=== PATIENT | female | born 1950 | race Caucasian/White ===

== ENCOUNTER → 2016-05-15 | Outpatient (CLI) | payer OTHER ==
[~2016-05-15] MED LIST: ALBUAER2 INH; ATEN100T8 PO; CETI10TA84 PO; CHOL100010 PO; IBUP-103 PO; MOME50SP5; MULT-506 PO; OXYC-57 PO; PRVC10 PO
== END | disposition home or self-care (01) ==
LOC: C.PATHSPEC 15:45
PROVIDERS: ATTEND Dentist Oral and Maxillofacial Pathology
DX: M27.40 Unspecified cyst of jaw (principal)

== ENCOUNTER 2024-02-04 07:29 | Observation (INO) ==
--- NOTE | 2023-12-23 09:15 | PAT Medication Instructions ---
Medication Instructions Date of Service December 23, 2023 Home Medications atorvastatin 20 mg tablet 20 mg PO QAM cholecalciferol (vitamin D3) 25 mcg (1,000 unit) capsule 25 mcg PO QAM omega 0-yjj-wcg-fish oil 1,000 mg (120 mg-180 mg) capsule (Fish Oil) 1 cap PO QAM potassium chloride 20 mEq oral packet (Klor-Con) 20 meq PO QAM Bifidobacterium infantis 4 mg capsule (Align) 4 mg PO QAM albuterol sulfate 90 mcg/actuation aerosol inhaler 1 inh inhalation QID PRN sob atenolol 100 mg-chlorthalidone 25 mg tablet 1 tab PO QAM cetirizine 10 mg tablet (Zyrtec) 10 mg PO QPM mometasone 50 mcg/actuation nasal spray (Nasonex 24hr Allergy) 1 spray intranasal BID vitamin B complex 1 tab PO QAM vitamins A,C,K-vjtc-avtoil 2,148 mcg-113 mg-45 mg-17.4 mg tablet (PreserVision AREDS) 1 tab PO BID azelastine 137 mcg (0.1 %) nasal spray 2 spray intranasal BID famotidine 20 mg tablet (Pepcid AC) 20 mg PO HS fluticasone 250 mcg-salmeterol 50 mcg/dose blistr powdr for inhalation 2 inh inhalation BID STOP taking 2 weeks before surgery (or as soon as possible if surgery is within 2 weeks) omega 2-uhj-tvm-fish oil 1,000 mg (120 mg-180 mg) capsule (Fish Oil) 1 cap PO QAM vitamins A,C,G-ades-cghwgk 2,148 mcg-113 mg-45 mg-17.4 mg tablet (PreserVision AREDS) 1 tab PO BID DO NOT take the morning of surgery cholecalciferol (vitamin D3) 25 mcg (1,000 unit) capsule 25 mcg PO QAM potassium chloride 20 mEq oral packet (Klor-Con) 20 meq PO QAM Bifidobacterium infantis 4 mg capsule (Align) 4 mg PO QAM vitamin B complex 1 tab PO QAM Take morning of surgery With a small sip of water, OTHERWISE NOTHING TO EAT OR DRINK AFTER MIDNIGHT: atorvastatin 20 mg tablet 20 mg PO QAM albuterol sulfate 90 mcg/actuation aerosol inhaler 1 inh inhalation QID PRN sob (use if needed; please bring rescue inhaler with you to hospital day of surgery if possible) atenolol 100 mg-chlorthalidone 25 mg tablet 1 tab PO QAM mometasone 50 mcg/actuation nasal spray (Nasonex 24hr Allergy) 1 spray intranasal BID azelastine 137 mcg (0.1 %) nasal spray 2 spray intranasal BID fluticasone 250 mcg-salmeterol 50 mcg/dose blistr powdr for inhalation 2 inh inhalation BID Take evening before surgery albuterol sulfate 90 mcg/actuation aerosol inhaler 1 inh inhalation QID PRN sob (if needed) cetirizine 10 mg tablet (Zyrtec) 10 mg PO QPM mometasone 50 mcg/actuation nasal spray (Nasonex 24hr Allergy) 1 spray intranasal BID azelastine 137 mcg (0.1 %) nasal spray 2 spray intranasal BID famotidine 20 mg tablet (Pepcid AC) 20 mg PO HS fluticasone 250 mcg-salmeterol 50 mcg/dose blistr powdr for inhalation 2 inh inhalation BID Other Notes If you have any questions please call us at [phone] or [phone] or [phone] or [phone]
--- NOTE | 2023-12-31 09:28 | Anesthesiology Consultation ---
Date of Service December 31, 2023 Assessment & Plan (1) Encounter for pre-operative examination: - check BSG am DOS. - patient states that was very slow to wake up with "medication they give you to be sleepy before a colonoscopy" and was advised to not have that in the future, she is unsure of exact name or class of medication, no available records. - Outpatient joint assessment: Patient is currently scheduled for inpatient pathway. Patient was originally scheduled for outpatient joint, however she expressed concern and consideration to remain overnight as her daughter who recently had surgery for thyroid cancer and will be a support person at home felt it would be better for patient to remain overnight. Surgeon's office and OR were made aware to change booking to overnight. Chart Review Chart Review: Acceptable Risk for Surgery and Patient seen in Pre Admission Testing Teaching & Discussion Pre-Anesthesia Teaching/Discussion Notes: Instructed NPO after midnight before surgery, except medications with 15 cc of water. Medication instructions provided according to the PAT guidelines. History Surgery Operation Date: 02/04/24 08:00 Proposed Procedures p Right Anatomic Total Shoulder Arthroplasty Versus Right Reverse Total Shoulder Arthroplasty - Maldonado Brar, Height/Weight Height: 5 ft 3 in Weight: 106.8 kg Allergies Allergy/AdvReac Type Severity Reaction Status Date / Time Penicillins Allergy Intermediate HIVES Verified 12/15/23 11:17 Sulfate Allergy Intermediate HIVES Uncoded 12/15/23 11:17 Medications Home Medications Medication Instructions Recorded Confirmed Last Taken atorvastatin 20 mg tablet 20 mg PO QAM 08/18/22 12/15/23 11/11/22 07:30 cholecalciferol (vitamin D3) 25 25 mcg PO QAM 08/18/22 12/15/23 10/27/22 17:00 mcg (1,000 unit) capsule omega 4-rfy-lbk-fish oil 1,000 mg 1 cap PO QAM 08/18/22 12/15/23 10/27/22 17:00 (120 mg-180 mg) capsule (Fish Oil) potassium chloride 20 mEq oral 20 meq PO QAM 08/18/22 12/15/23 10/27/22 17:00 packet (Klor-Con) Bifidobacterium infantis 4 mg 4 mg PO QAM 10/21/22 12/15/23 10/27/22 17:00 capsule (Align) albuterol sulfate 90 mcg/actuation 1 inh inhalation QID PRN sob 10/21/22 12/15/23 10/27/22 17:00 aerosol inhaler atenolol 100 mg-chlorthalidone 25 1 tab PO QAM 10/21/22 12/15/23 11/11/22 07:30 mg tablet cetirizine 10 mg tablet (Zyrtec) 10 mg PO QPM 10/21/22 12/15/23 10/27/22 17:00 mometasone 50 mcg/actuation nasal 1 spray intranasal BID 10/21/22 12/15/23 10/27/22 17:00 spray (Nasonex 24hr Allergy) vitamin B complex 1 tab PO QAM 10/21/22 12/15/23 10/27/22 17:00 vitamins A,C,Z-edvq-mettds 2,148 1 tab PO BID 10/21/22 12/15/23 10/27/22 17:00 mcg-113 mg-45 mg-17.4 mg tablet (PreserVision AREDS) azelastine 137 mcg (0.1 %) nasal 2 spray intranasal BID 12/15/23 12/15/23 Unknown spray famotidine 20 mg tablet (Pepcid AC) 20 mg PO HS 12/15/23 12/15/23 Unknown fluticasone 250 mcg-salmeterol 50 2 inh inhalation BID 12/15/23 12/15/23 Unknown mcg/dose blistr powdr for inhalation Past Medical History Medical History (Updated 12/31/23 @ 09:44 by Shania Love PA-C) Acid reflux controlled, stable per pt Arthritis Asthma "Does not use rescue inhaler often" Benign positional vertigo "Haven't had in a long time" Bilateral hearing loss hearing aids History of COVID-19 03/2022>resolved History of skin cancer Top of right shoulder Hyperlipidemia Hypertension controlled, stable per pt Macular degeneration of both eyes Prediabetes Diet controlled Seasonal allergies Sleep apnea CPAP-compliant Patient denies h/o stroke, seizures, heart attack, heart failure, blood clots/DVTs or blood transfusions. Exercise / Class Metabolic Activity III < 4 Walking/Shop/Light housework (denies chest discomfort or shortness of breath with usual activities) Past Family History Family History Other No family history of adverse response to anesthesia Past Surgical History Surgical History H/O shoulder surgery rt History of anesthesia reaction slow to wake up History of colonoscopy History of hysterectomy History of surgery lipoma removal History of tonsillectomy and adenoidectomy History of tooth extraction Hx of bilateral cataract extraction Past Anesthesia History No Family Hx of Anesthesia Complications and Other (slow to wake up) History of PONV No Hx of PONV and No Hx of Motion Sickness Social History Smoking Status: Never smoker Do You Dip or Chew Tobacco: No Hx Alcohol Use: Yes Alcohol type: wine and hard liquor alcohol intake frequency: holidays/special occasions only Hx Substance Use: No substance use type: does not use Review of Systems Patient denies chest pain, shortness of breath, dyspnea on exertion, fever, chills, cough, wheezing, or palpitations. Physical Exam Vital Signs Vitals BP 114/72 P 62 TEMP 97.7 SP02 97% on RA RESP 17 Physical Patient resting comfortably in chair in no acute distress, alert and oriented, responding appropriately throughout visit Full cervical extension range of motion without pain TMD < 3 finger breadths Mallampati Score 2 Dentition: several crowns, chipped teeth and one implant, denies loose teeth, crowns, or bridges Lungs: normal respiratory effort. Good air movement, clear throughout to auscultation, no adventitious breath sounds Cardiac: regular rate and rhythm, no murmurs noted Carotid arteries: negative bruit bilat Lab Results Anesthesia Preop Results Results Anesthesia Widget: WBC 6.02 K/ul (4.8-10.8) 12/31/23 Hgb 13.9 g/dl (12.0-16.0) 12/31/23 Hct 41.9 % (37.0-47.0) 12/31/23 Plt 158 K/uL (130-400) 12/31/23 Na 141 mmol/L (136-145) 12/31/23 K 3.7 mmol/L (3.5-5.1) 12/31/23 Cl 102 mmol/L (98-107) 12/31/23 CO2 32 mmol/L (21-32) 12/31/23 BUN 14 mg/dl (6-23) 12/31/23 Creat 0.74 mg/dl (0.6-1.2) 12/31/23 Glucose Level 142 mg/dl (70-99(Fasting)) H 12/31/23 PT 10.5 Seconds (9.0-12.0) 12/31/23 PTT 27 Seconds (21-31) 12/31/23 INR 1.0 (0.9-1.1) 12/31/23 Blood Type A Positive 12/31/23 Antibody Screen NEGATIVE 12/31/23 Testing Electrocardiogram Date: 12/31/23 Sinus bradycardia, rate 59 bpm Chest X-Ray Date: 06/01/23 No evidence of acute cardiopulmonary disease. Echocardiogram Date: 08/25/23 EF 60-64% Mild cLVH Mild aortic valve regurgitation Mild tricuspid regurgitation
--- NOTE | 2024-02-03 07:02 | History & Physical Report ---
Date of Service February 03, 2024 Assessment & Plan (1) Osteoarthritis of right shoulder: We will proceed with a right total shoulder arthroplasty. Postoperatively she will be placed in a sling and will be part of her outpatient joint protocol. She will be discharged to home on oral pain medications. She plans to see [facility] for therapy. History of Present Illness Chief Complaint: Osteoarthritis of the right shoulder. Primary Care Provider: Michelle Simon MD Alvina is a pleasant 72-year-old female who has been dealing with chronic increasing right shoulder pain. 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 After failing conservative treatment, she has elected to proceed with a right total shoulder arthroplasty. . Allergies Allergy/AdvReac Type Severity Reaction Status Date / Time Penicillins Allergy Intermediate HIVES Verified 12/15/23 11:17 Sulfate Allergy Intermediate HIVES Uncoded 12/15/23 11:17 Home Medications Medication Instructions Recorded Confirmed Type atorvastatin 20 mg tablet 20 mg PO QAM 08/18/22 12/15/23 History cholecalciferol (vitamin D3) 25 25 mcg PO QAM 08/18/22 12/15/23 History mcg (1,000 unit) capsule omega 1-eow-vaj-fish oil 1,000 mg 1 cap PO QAM 08/18/22 12/15/23 History (120 mg-180 mg) capsule (Fish Oil) potassium chloride 20 mEq oral 20 meq PO QAM 08/18/22 12/15/23 History packet (Klor-Con) Bifidobacterium infantis 4 mg 4 mg PO QAM 10/21/22 12/15/23 History capsule (Align) albuterol sulfate 90 mcg/actuation 1 inh inhalation QID PRN sob 10/21/22 12/15/23 History aerosol inhaler atenolol 100 mg-chlorthalidone 25 1 tab PO QAM 10/21/22 12/15/23 History mg tablet cetirizine 10 mg tablet (Zyrtec) 10 mg PO QPM 10/21/22 12/15/23 History mometasone 50 mcg/actuation nasal 1 spray intranasal BID 10/21/22 12/15/23 History spray (Nasonex 24hr Allergy) vitamin B complex 1 tab PO QAM 10/21/22 12/15/23 History vitamins A,C,W-xfmq-eqwijr 2,148 1 tab PO BID 10/21/22 12/15/23 History mcg-113 mg-45 mg-17.4 mg tablet (PreserVision AREDS) azelastine 137 mcg (0.1 %) nasal 2 spray intranasal BID 12/15/23 12/15/23 History spray famotidine 20 mg tablet (Pepcid AC) 20 mg PO HS 12/15/23 12/15/23 History fluticasone 250 mcg-salmeterol 50 2 inh inhalation BID 12/15/23 12/15/23 History mcg/dose blistr powdr for inhalation Past Med/Surg History Problem List Encounter for pre-operative examination Osteoarthritis of right shoulder Complex endometrial hyperplasia with atypia (Acute) Medical History Bilateral hearing loss hearing aids Macular degeneration of both eyes Benign positional vertigo "Haven't had in a long time" History of skin cancer Top of right shoulder Arthritis Acid reflux controlled, stable per pt Prediabetes Diet controlled History of COVID-19 03/2022>resolved Hypertension controlled, stable per pt Hyperlipidemia Seasonal allergies Sleep apnea CPAP-compliant Asthma "Does not use rescue inhaler often" Surgical History History of surgery lipoma removal Hx of bilateral cataract extraction History of anesthesia reaction slow to wake up H/O shoulder surgery rt History of colonoscopy History of hysterectomy History of tooth extraction History of tonsillectomy and adenoidectomy Family History Other No family history of adverse response to anesthesia Social History Smoking Status: Never smoker Second Hand Exposure: No; Do You Dip or Chew Tobacco: No; Tobacco Cessation Education Requested by Patient: No Hx Alcohol Use: Yes Alcohol type: wine and hard liquor Hx Substance Use: No Preferred Language: Lithuanian Communication Ability: Effective Engineering Project Designer Required: No Beliefs That Will Affect Care: None Current Living Situation: Alone Other Information That Helps Us Care for You: No Feels Safe at Home: Yes Safety Concerns: Feels Safe At This Time Assistive Devices: Hearing Aid - Bilateral Review of Systems All systems reviewed & are unremarkable except as noted in HPI & below. Physical Exam Physical examination of the right shoulder, she has decreased range of motion. She has pain over the glenohumeral joint line.. Constitutional WD/WN, vitals as above Eyes PERRL, conjunctivae normal, anicteric sclerae ENMT external ear and nose normal, oropharynx normal Neck trachea midline, no thyromegaly Respiratory normal respiratory effort Cardiovascular RRR, no murmur, no edema Gastrointestinal (Abdomen) normal bowel sounds, soft, nontender, no hepatosplenomegaly Psychiatric A+Ox3, euthymic affect Results & Data Results & Data Laboratory Results . Diagnostic Findings X-rays of the right shoulder show advanced osteoarthritis with joint space narrowing, osteophyte formation, and zhwn-av-nlvg articulation.. PG Care Time/CCT Total # of Minutes Spent Total Time Spent with Patient: Total time spent is greater than 50% in coordination of care (as documented) at patient's floor/unit and/or counseling patient: Coding Level of Care Code None Diagnoses Osteoarthritis of right shoulder M19.011
[~2024-02-04 07:29] MED LIST changes: -ALBUAER2 INH; +ALLERGY Noted to ORDERED Medication SCH; -ATEN100T8 PO; +BUPIVACAINE 0.5 % 5 MG/1 ML PF 10ML VIAL ONE; -CETI10TA84 PO; -CHOL100010 PO; -IBUP-103 PO; -MOME50SP5; -MULT-506 PO; -OXYC-57 PO; -PRVC10 PO
[2024-02-04] MEDS: LR 15ML/HR IV SCH (08:27)
[2024-02-04] MEDS: ACETAMINOPHEN 500 MG TAB PO SCH ×2 (08:28→13:56)
[2024-02-04] MEDS ORDERED: LIDOCAINE 2% 20 MG/ML 5 ML SYR IV ONE (08:28)
[2024-02-04] MEDS ORDERED: MIDAZOLAM HCL 1 MG/ML 2ML VIAL ONE (08:28)
[2024-02-04] MEDS ORDERED: fentaNYL citrate PF 100 MCG/2 ML VIAL ONE (08:28)
[2024-02-04] MEDS ORDERED: PROPOFOL IV EMULSION 10 MG/ML 20 ML VIAL IV ONE (08:28)
[2024-02-04] MEDS ORDERED: ePHEDrine sulfate 50 MG/ML AMP IV PRN (08:29)
[2024-02-04] MEDS: FAMOTIDINE 20 MG TAB PO SCH (08:29)
[2024-02-04] MEDS ORDERED: PROMETHAZINE HCL 6.25 MG in SODIUM CHLORIDE 0.9% 50 ML IV PRN (08:29)
[2024-02-04] MEDS ORDERED: fentaNYL citrate PF 100 MCG/2 ML VIAL IV PRN (08:29)
[2024-02-04] MEDS ORDERED: ATROPINE SULFATE 0.1 MG/ML 10ML SYR IV PRN (08:29)
[2024-02-04] MEDS: GABAPENTIN 300 MG CAP PO SCH (08:29)
[2024-02-04] MEDS ORDERED: ONDANSETRON INJ 2 MG/ML 2 ML VIAL IV PRN ×2 (08:29→12:54)
[2024-02-04] MEDS: dexAMETHasone**PF** 10 MG/ML VIAL IV SCH (08:30)
[2024-02-04] MEDS: LR 60ML/HR IV SCH (08:35)
--- NOTE | 2024-02-04 08:58 | History & Physical Bridge Note ---
Date of Service February 04, 2024 History & Physical Bridge Note I have examined the patient, reviewed the History & Physical and in the interval since the performance of the History & Physical I have noted the following changes of clinical significance: no changes noted
[2024-02-04] MEDS ORDERED: Nursing to Pharmacy Communication SCH (09:15)
[2024-02-04] MEDS: TRANEXAMIC ACID 1,000 MG **IV Pre-op IV SCH (09:50)
[2024-02-04] MEDS: ceFAZolin 2000MG 2,000 MG/15 ML SYR IV SCH ×2 (09:59→17:23)
[2024-02-04] MEDS ORDERED: DEXAMETHASONE SOD INJ 4 MG/ML VIAL ONE (10:33)
[2024-02-04] MEDS ORDERED: PHENYLEPHRINE 100MCG/ML 10ML SYR IV ONE (10:33)
[2024-02-04] MEDS ORDERED: ePHEDrine sulfate 50 MG/5 ML SYR ONE (10:33)
[2024-02-04] MEDS ORDERED: ONDANSETRON INJ 2 MG/ML 2 ML VIAL ONE (10:33)
[2024-02-04] MEDS: ORTHO JOINT ANESTHETIC ONE (10:38)
[2024-02-04] MEDS: ROPIV 0.5% 246mg, Ketorolac 30mg, EPINEPHrine 0.5mg in NSS INFIL SCH (11:07)
[2024-02-04] MEDS: TRANEXAMIC ACID 1,000 MG **IV Intra-op IV SCH (11:07)
--- NOTE | 2024-02-04 11:11 | Operative Report ---
PG Post Operative Report Pre & Post Diagnosis Operation Date: 02/04/24 10:00 Pre-Op Diagnosis: Degenerative Joint Disease Right Shoulder with tendinopathy long head of biceps tendon Post-Op Diagnosis: Degenerative Joint Disease Right Shoulder with tendinopathy long head of the biceps tendon I identified the patient and participated in the time-out.: Yes Procedure Operation Date: 02/04/24 10:00 Actual Procedures p Right Anatomic Total Shoulder Arthroplasty(Right) with open biceps tenodesis as a distinct and separate procedure (modifier 59)- Maldonado Brar DO Surgeon Maldonado Brar DO Internal Grinding Machine Operator Maldonado Palomares PA-C Estimated Blood Loss 200 Findings Consistent with Post-Op Diagnosis Specimens Right humeral head Description of Procedure A CPT code modifier 59: The long head of the biceps tendon was enlarged and inflamed consistent with tendinopathy. A tenodesis was opted. This was a separate and distinct portion of the procedure. For these reasons, a CPT code modifier 59 will be added to this case. Implants used: I used a [employer] Comprehensive total shoulder arthroplasty system with a size 6 press fit micro humeral stem, a size 42 x 18 eccentric humeral head, and a size 3 glenoid with a trabecular metal peg. The glenoid was cemented in place with Palacos G cement. Alvina arrived at [facility] for the above procedure. She was seen in the preoperative holding area and the operative extremity was identified and signed. She was given a preoperative antibiotic, TXA, and an interscalene nerve block. She was taken back to the operating room, laid on table in supine position, and put under general anesthesia. She was then put into the beachchair position. The shoulder was then prepped and draped in sterile fashion. A timeout was done and the patient and the operative extremity was properly identified. A deltopectoral approach was used. Dissection was taken down through the fascia and the deltoid was retracted laterally and the conjoined tendon was retracted medially. The anterior shoulder was exposed. The biceps groove was opened up and the biceps tendon was examined extensively. The biceps tendon demonstrated enlargement and inflammatory changes consistent with longstanding inflammation in the context of osteoarthritis. The long head of the biceps tendon was then tenodesed to the upper border of the pectoralis major. This was a separate and distinct portion of the procedure. The subscapularis was then released off the lesser tuberosity with a centimeter of cuff tissue remaining. The inferior capsule was released and the humeral head was dislocated. The rotator cuff was inspected and intact. A canal finding reamer was sent down the center of the humeral canal. Sequential reaming up to a size 6 reamer was done. Offset reamer a proximal humeral resection guide was placed. The proximal humerus was resected at 135 of inclination and 30 of retroversion. Inferior osteophytes were then removed and the glenoid was exposed. Time was spent doing an appropriate labral release. The glenoid measured to be a size 3. A 3.2 mm Steinmann pin was placed in the central hole of the glenoid vault pin guide. The glenoid was then reamed with a propeller reamer. The central post cutter was then used to prepare for the central boss. The cannulated peripheral peg drill guide was then placed and 3 peg holes were drilled. The final size 3 glenoid was then cemented in place with Palacos G cement. Surrounding soft tissues were then injected with 100 cc of an orthopedic pain control cocktail. Once cement had dried the proximal humerus was once again exposed. Sequential broaching of the humerus up to a size 6 broach was done. Off that broach a size 42 x 18 eccentric humeral head was trialed. The shoulder was then reduced, brought through a full range of motion, and felt to be stable. The shoulder was then dislocated and the broach was removed. The final size 6 micro humeral stem implant was then impacted into place. A size 42 x 18 eccentric humeral head was then impacted onto the humeral stem. The shoulder was then reduced and once again brought through a full range of motion and felt to be stable. The subscapularis was then tenodesed back to the lesser tuberosity with transosseous FiberWire sutures and side to side sutures with the arm in 45 of external rotation. 2 sutures were placed in the lateral rotator interval. A dilute betadyne lavage was then done for 3 minutes. The joint was then irrigated with normal saline solution. Hemostasis was obtained. The interval was closed with 2-0 Vicryl suture. The skin was closed with 2-0 Vicryl and arban. A Silverlon dressing was placed and the arm was rested in a regular arm sling. She was then extubated and transferred to a hospital bed. She was taken to the postanesthesia care unit in stable condition. She tolerated the procedure well. Maldonado Palomares PA-C, was present for the entire procedure. He was critical for patient positioning, prepping, draping, retraction exposure, wound closure and application of sterile dressing. I attest to the content of the Intraoperative Record and any orders documented therein. Any exceptions are noted below.
[2024-02-04] MEDS ORDERED: ALBUTEROL HFA 8 GM INHALER INH PRN (12:54)
[2024-02-04] MEDS ORDERED: bisacodyL 10 MG SUPP PR PRN (12:54)
[2024-02-04] MEDS ORDERED: METOCLOPRAMIDE HCL INJ 5 MG/ML 2 ML VIAL IV PRN (12:54)
[2024-02-04] MEDS ORDERED: NALOXONE HCL 0.4 MG/1 ML VIAL/CARP IV PRN (12:54)
[2024-02-04] MEDS ORDERED: oxyCODONE HCL IR 5 MG TAB (IMMEDIATE RELEASE) PO PRN (12:54)
[2024-02-04] MEDS ORDERED: HYDROmorphone INJ 0.5 MG/0.5 ML SYR IV PRN (12:54)
[2024-02-04] MEDS ORDERED: MAGNESIUM HYDROXIDE SUSP 30 ML UDC PO PRN (12:54)
[2024-02-04] MEDS: ceFAZolin 2,000 MG/15 ML IV PUSH IV ONE (13:45)
[2024-02-04] MEDS: SODIUM CHLORIDE 0.9% 1,000 ML IV SCH (13:55)
[2024-02-04] MEDS: KETOROLAC TROMETHAMINE 15 MG/ML VIAL IV SCH (13:56)
--- NOTE | 2024-02-04 15:12 | Anesthesiology Progress Note ---
Date of Service February 04, 2024 Anesthesia Post Procedure Vital Signs Vital Signs: Temp Pulse Pulse Resp BP Pulse Ox O2 Del Method 02/04/24 13:45 54 L 18 93/56 L 96 Room Air 02/04/24 13:16 36.8 C 52 L 17 99/64 L 99 Room Air 02/04/24 12:45 36.5 C 55 L 18 105/68 96 Room Air 02/04/24 12:19 36.4 C L 60 19 108/55 L 96 Room Air 02/04/24 12:05 36.1 C L 55 L 17 110/56 L 98 Room Air 02/04/24 11:55 55 L 15 121/60 95 Room Air 02/04/24 11:45 66 15 99/51 L 98 Oxymask 02/04/24 11:35 55 L 15 104/55 L 98 Oxymask 02/04/24 11:29 36.0 C L 67 15 109/49 L 99 Oxymask 02/04/24 08:07 36.4 C L 55 L 20 104/69 99 Room Air O2 Flow Rate 02/04/24 13:45 02/04/24 13:16 02/04/24 12:45 02/04/24 12:19 02/04/24 12:05 02/04/24 11:55 02/04/24 11:45 5 02/04/24 11:35 5 02/04/24 11:29 5 02/04/24 08:07 Pain Intensity Back: Pain Intensity: 2 Transfer of Care Handoff Completed per policy Notes Mental Status: alert / awake / arousable and participated in evaluation Patient Amnestic to Procedure: Yes Nausea / Vomiting: adequately controlled Pain: adequately controlled Airway Patency, RR, SpO2: stable & adequate BP & HR: stable & adequate Hydration State: stable & adequate Anesthetic Complications: no major complications apparent and Pt Satisfied with anesthetic care
--- NOTE | 2024-02-04 15:20 | XRay Report ---
XR shoulder RT min 2V routine CLINICAL HISTORY: Post shoulder surgery COMPARISON: Right shoulder radiographs November 23, 2023. FINDINGS: Alignment of the right shoulder arthroplasty is anatomic. There is no periprosthetic fract ure. A 1.5 cm linear density projects over the scapula on AP projection. There are skin abran. Righ t basilar opacity favors atelectasis. IMPRESSION: 1. Intact right shoulder arthroplasty. No periprosthetic fracture. 2. 1.5 cm linear density which projects over the scapula on AP projection. This is likely artifactual /on the patient. A radiopaque foreign body is considered less likely but cannot be excluded. This can be assessed with follow-up right shoulder radiographs. ACT 112: Negative or not required by law. Electronically signed by: Mike Shah M.D. 02/04/2024 3:19 PM
--- OUTSIDE RECORDS SUMMARY | 2024-02-04 16:09 | External Medical Summary | Summary of Care ---
Author Name Unknown Organization [facility] Address [address] [facility] [address] Phone [phone] Care Team Providers Care Hemstitching Machine Operator Name Role Phone Michelle Simon MD Primary Care Provider + Reason for Visit * Reason Comments eRx-Medication Refill Encounter Details Date Type Department Care Team (Late st Contact Info) Description 01/24/2024 Refill General Internal Medicine [facility] [address] [facility] [place] [address] Michelle Simon MD [address] [place] [address] Electrolyte and fluid disorder; HTN, goal below 140/90 Allergies Active Allergy Reactions Criticality Noted Date Comments Penicillins Hives 01/21/1998 Sulfa Antibiotics Hives 01/27/2011 documented as of this encounter (statuses as of 01/25/2024) Medications Medication Sig Dispensed Refills Start Date End Date Status VITAMIN D 1000 UNITS PO CAPSIndications:Vi tamin D deficiency 1 capsule daily 30 Cap 11 12/14/2011 Active NASAL SALINE 0.65 % NA SOLNIndications:Al lergic rhinitis,PND (post-nasal drip),Recurrent sinus infections FLUSH each nostril morning and night and every 2-4 hrs as needed for nasal dryness or congestion 1 Bottle 3 03/14/2012 Active ADVIL 200 MG PO CAPS as needed Active Ketoconazole 2 % creamIndications:T inea pedis of both feet Apply topically to affected area 2 times a day. Apply to feet 15 g 1 10/12/2019 Active Hydrocortisone 2.5 % External OintmentIndication s:Dermatitis Apply to top of buttocks once daily as needed for flares 30 g 04/15/2021 Active PreserVision AREDS 2 Oral Capsule Take 1 Capsule by mouth in the morning and 1 Capsule before bedtime. Active Famotidine 20 MG Oral Tablet (Pepcid) Take 1 Tablet by mouth at bedtime as needed. Active Probiotic Acidophilus BioBeads Oral Capsule Take 1 Capsule by mouth in the morning. Align probiotic. Active Acetaminophen ER 650 MG Oral Tablet Extended Release Take 1 Tablet by mouth every 8 hours as needed. Active Fish Oil 1000 MG Oral Capsule Take 1 Capsule by mouth in the morning. Active CPAP every night at bedtime. Active Vitamin B Complex Oral Tablet Take 1 Tablet by mouth in the morning. 10/21/2022 Active Albuterol Sulfate HFA 108 (90 Base) MCG/ACT Inhalation Aerosol SolutionIndication s:Intermittent asthma with reliever use up to twice per week, uncomplicated INHALE 2 PUFFS EVERY 4 HOURS NEEDED FOR COUGH, WHEEZE, SHORTNESS OF BREATH AND PRIOR TO EXERCISE 18 g 5 05/10/2023 Active Nystatin-Triamcino lone 534754-2.1 UNIT/GM-% External Cream (Mycolog)Indicatio ns:Other atopic dermatitis Apply to rash twice a day until clear 60 g 1 08/05/2023 Active Cetirizine HCl 10 MG Oral Tablet (ZyrTEC Allergy) Take 1 Tablet by mouth at bedtime. Active Mometasone Furoate 50 MCG/ACT Nasal Suspension (Nasonex 24HR) Administer 2 Sprays into nostril in the morning. Active cycloSPORINE 0.05 % Ophthalmic Emulsion (Restasis) Instill 1 Drop into both eyes in the morning and 1 Drop before bedtime. 06/21/2023 Active Atorvastatin Calcium 20 MG Oral Tablet (Lipitor) TAKE 1 TABLET BY MOUTH EVERY MORNING 90 Tablet 3 09/14/2023 Active Meloxicam 15 MG Oral Tablet Take 1 Tablet by mouth in the morning. Active Fluticasone Propionate HFA 110 MCG/ACT Inhalation AerosolIndications :Intermittent asthma with reliever use up to twice per week with acute exacerbation Inhale 2 Puffs by mouth in the morning and 2 Puffs before bedtime. BRAND NECESSARY. 36 g 3 11/18/2023 Active Azelastine HCl 0.1 % Nasal Solution (Astelin) Administer 2 Sprays into nostril in the morning and 2 Sprays before bedtime. 90 mL 12 12/24/2023 Active Potassium Chloride Mary Jane ER 20 MEQ Oral Tablet Extended ReleaseIndications :Electrolyte and fluid disorder Take 1 Tablet by mouth in the morning. 90 Tablet 2 01/25/2024 Active Atenolol-Chlorthal idone 100-25 MG Oral TabletIndications: HTN, goal below 140/90 TAKE 1 TABLET BY MOUTH ONCE DAILY 90 Tablet 2 01/25/2024 Active Potassium Chloride Mary Jane ER 20 MEQ Oral Tablet Extended ReleaseIndications :Electrolyte and fluid disorder Take 1 Tablet by mouth in the morning. 90 Tablet 07/27/2023 4 Discontinued Atenolol-Chlorthal idone 100-25 MG Oral TabletIndications: HTN, goal below 140/90 TAKE 1 TABLET BY MOUTH ONCE DAILY 90 Tablet 07/27/2023 4 Discontinued documented as of this encounter (statuses as of 01/25/2024) Active Problems Problem Noted Date Diagnosed Date Prediabetes 09/06/2023 Overview: Per Prediabetes protocol History of prediabetes 06/24/2022 Hypokalemia 06/24/2022 History of nonmelanoma skin cancer 05/15/2022 Overview: SCC R shoulder 09/2021 Hx of actinic keratosis 05/15/2022 Hyperlipidemia with target LDL less than 100 09/2020 Nocturnal hypoxemia 10/03/2018 SONYA (obstructive sleep apnea) 02/03/2018 HTN, goal below 140/90 2015 Allergic rhinitis 03/14/2012 Intermittent asthma with reliever use up to twic e per week 01/12/2012 Intermittent asthma with reliever use up to twic e per week 01/12/2012 Vitamin D deficiency 12/14/2011 GERD (gastroesophageal reflux disease) 2 Hyperthyroidism 12/11/2011 Obesity, morbid (more than 1 00 lbs over ideal weight or BMI > 40) 07/23/2009 Overview: Per Obesity Taxonomy ICD-10 update of inactive term ADVANCE DIRECTIVE INFORMATION 06/29/2006 Overview: Yes-advised to bring copy in to be scanned into EMR. FAMILY HX-GI MALIGNANCY - Dad 01/21/1998 documented as of this encounter (statuses as of 01/25/2024) Resolved Problems Problem Noted Date Diagnosed Date Resolved Date Other specified diabetes lino litus with hyperglycemia 01/18/2020 06/24/2022 Encounter for examination fo r normal comparison and control in clinical research program 06/14/2017 11/27/2019 Overview: DO NOT DELETE avox DETECT Study: Project # [id number], Graduation Coach: Judd Danielle, PhD. SUMMARY: Goal: Establish test characteristics (sensitivity, specificity, PPV, NPV) of a circulating tumor DNA (ctDNA)-based test for cancer. Hypothesis: Circulating tumor DNA (ctDNA) and elevated protein biomarkers (together, the marker panel) can be detected in asymptomatic individuals with early cancer. Specific Aim 1: Determine the prevalence of a positive marker panel test in a prospective clinical cohort of 10,000 asymptomatic women ages 65 to 75 years. Specific Aim 2: Determine the sensitivity, specificity, positive predictive value (PPV) and negative predictive value (NPV) of a marker panel test to identify histologically proven cancers that develop within 5-years of the marker panel evaluation. CONTACTS: During normal business hours, contact study staff at ; after hours Graduation Coach via the [facility] operator . Please contact study team before resolving/deleting from patients problem list. Study phone number: [phone]. Diagnosis changed due to Research Module. Go to Snapshot for study details. Encounter for examination fo r normal comparison and control in clinical research program 06/14/2017 12/25/2021 Overview: DO NOT DELETE - avox DETECT Study: Project # [id number], Graduation Coach: Aakash Suarez, MS, MPH. SUMMARY: Goal: Establish test characteristics (sensitivity, specificity, PPV, NPV) of a circulating tumor DNA (ctDNA)-based test for cancer. - Hypothesis: Circulating tumor DNA (ctDNA) and elevated protein biomarkers (together, the marker panel) can be detected in asymptomatic individuals with early cancer. - Specific Aim 1: Determine the prevalence of a positive marker panel test in a prospective clinical cohort of 10,000 asymptomatic women ages 65 to 75 years. - Specific Aim 2: Determine the sensitivity, specificity, positive predictive value (PPV) and negative predictive value (NPV) of a marker panel test to identify histologically proven cancers that develop within 5-years of the marker panel evaluation. - CONTACTS: During normal business hours, contact study staff at ; after hours Graduation Coach via the [facility] ap operator . - Please contact study team before resolving/deleting from patients problem list. Study phone number: [phone]. Diagnosis changed due to Research Module. Go to Snapshot for study details. Prediabetes 2015 06/24/2022 PND (post-nasal drip) 03/14/20122012 Recurrent sinus infections 03/14/2012 0 12/08/2016 Acute bronchitis, complicated 02/04/2011 12/11/2011 Achilles tendinitis 10/15/2009 12/31/19 13 Acute bronchitis, complicated 07/30/2009 09/03/2009 Dyslipidemia, goal to be determined 04/04/2009 12/11/2011 Overview: Per Lipid Taxonomy. Polyp of corpus uteri 04/29/20002011 Mixed dyslipidemia 01/21/1998 9 Overview: Per Lipid Taxonomy. OBESITY, UNSPECIFIED 01/21/1998 010 Overview: Per Obesity Taxonomy documented as of this encounter (statuses as of 01/25/2024) Immunizations Name Administration Dates Next Due COVID-19 mRNA, LNP-s, No Pre serve, 2-Dose Series (Moderna) 06/25/2020,05/22/2020 COVID-19, MRNA-LNP, 23-24, P F, 30 MCG/0.3 mL, 12 YRS AND ABOVE, IM (PFIZER-Comirnaty) 01/01/2024 COVID-19, MRNA-LNP, 23-24, P F, 50 MCG/0.5 mL, 12 YRS AND ABOVE, IM (MODERNA-Spikevax) 01/08/2023 COVID-19, mRNA, LNP-s, PF, B ooster, 100mcg/0.5mg (Moderna) 07/23/2021,07/23/2021,02/19/2021 Covid-19, Mrna, Lnp-s, Pf, B ivalent, 50 Mcg, IM, 12 yrs and above (Moderna) 01/28/2022 PPD 01/22/2014 Pneumococcal Conjugate Vacc, 13 Valent (Prevnar) 12/16/2015 Pneumococcal Polysaccharide PPV23 (Pneumovax) 06/15/2017 RSV Vac., Recomb, Adjuvant, PF,0.5 Ml (Arexvy) 01/16/2023 Season Influenza, Quad, PF, Adjuvanted, 65+ Yrs, IM (FLUAD) 01/18/2020 Seasonal Influenza Vac., MDV , IM, 0.5 mL (Fluzone) 01/18/2014,01/14/2013,12/31/2011,02/14 Seasonal Influenza Virus Vac cine, Unspecified Formulation 01/19/2022 Seasonal Influenza, High Dos e, Trivalent, PF, IM (Fluzone HD) 01/06/2024 Seasonal Influenza, PF, 6 M & above, IM , (FluLaval or Fluzone) 02/22/2018,03/01/2017 Seasonal Influenza, Quadriva lent Hd (Fluzone Hd) 01/08/2023,02/05/2021 Seasonal Influenza, Quadriva lent, No Preserve, IM 03/31/2016,03/06/2015 Seasonal Influenza, Trivalen t, Adjuvanted, 65+ YRS, PF, (Fluad) 12/23/2018 TD - Tetanus/Diptheria (ADULT) 10/02/2006 TDAP (age 10 and older)(Boostrix) 05/29/2022, Varicella Zoster Vaccine (Adult) 12/31/2011 Zoster Vaccine Recombinant (Shingrix) 06/19/2019 ,03/06/2019 documented as of this encounter Social History Tobacco Use Types Packs/Day Years Used Date Smoking Tobacco: Never Smokeless Tobacco: Never Comments:no passive smoke Alcohol Use Standard Drinks/Week Comments Yes 0 (1 standard drink = 0.6 oz pur e alcohol) rare- wine PHQ-2 Answer Date Recorded PHQ Adult Total Score 5 03/26/2023 Hunger Vital Sign Answer Date Recorded Within the past 12 months, y ou worried that your food would run out before you got the money to buy more. Never true 11/17/19 23 Within the past 12 months, t he food you bought just didn't last and you didn't have money to get more. Never true 11/16/2022 Childcare Answer Date Recorded Do you feel overwhelmed with taking care of a child, family member or friend? No 11/16/2022 Does your family need help f inding childcare? (Household - for ages 0-17 years) Not on file 11/16/2022 Clothing Answer Date Recorded Have you been unable to get clothing when it was really needed? No 11/16/2022 Is your family able to get c lothes or diapers when needed? (Household - for ages 0-17 years) Not on file 11/16/2022 Personal Safety Answer Date Recorded Do you feel unsafe or have concerns for your saf ety? No 11/16/2022 Do you have concerns for you r family's safety? (Household - for ages 0-17 years) Not on file 11/16/2022 Utilities Answer Date Recorded Do you have trouble paying y our heating, water, or electric bill? (Adult - for ages 18 years and over) Not on file 11/18/2023 Is your family able to pay t he heat, water, or electric bill? (Household - for ages 0-17 years) Not on file 11/18/2023 Does your family have access to good internet? (Household - for ages 0-17 years) Not on file 11/18/2023 Employment Status Answer Date Recorded Are you unemployed or without regular income? No 11/16/2022 Does the household have a re gular source of income? (Household - for ages 0-17 years) Not on file 11/16/2022 Social Connections Answer Date Recorded How often do you feel lonely or isolated from those around you? (Adult - for ages 18 years and over) Not on file 11/18/2023 Financial Resource Strain Answer Date R ecorded Do you have any trouble payi ng for your medications, or do you think you might in the future? No 11/16/2022 Does your family have troubl e paying for medicine? (Household - for ages 0-17 years) Not on file 11/16/2022 Transportation Needs Answer Date Record ed READ ONLY Do you have troubl e getting a ride to medical visits or work? Never True 11/16/2022 Does your family have a hard time getting a ride to doctors visits? (Household - for ages 0-17 years) Not on file 11/16/2022 Has lack of transportation k ept you from medical appointments, meetings, work, or from getting things needed for daily living? Check all that apply. (Adult - for ages 18 years and over) Not on file 11/16/2022 Do you (or your family) have trouble finding or paying for a ride (transportation)? (Household - for ages 0-17 years) Not on file 11/16/2022 Housing Stability Answer Date Recorded Do you currently live in a s helter or have no steady place to sleep at night? No 11/16/2022 READ ONLY Do you think you a re at risk of becoming homeless? No 11/16/2022 Does your family worry about paying for your home or becoming homeless? (Household - for ages 0-17 years) Not on file 0 11/16/2022 Are you homeless or worried that you might be in the future? (Adult - for ages 18 years and over) Not on file Are you (or your family) raisa eless or worried that you might be in the future? (Household - for ages 0-17 years) Not on file Food Insecurity Answer Date Recorded Do you need food for this week? No 11/16/2022 Are you able to get enough f ood for your family? (Household - for ages 0-17 years) Not on file 11/16/2022 Does your family need food t his week? (Household - for ages 0-17 years) Not on file 11/16/2022 Do you always have enough fo od for your family? (Household - for ages 0-17 years) Not on file 11/16/2022 Sex and Gender Information Value Date Recorded Sex Assigned at Female 09/22/2018 11:50 AM EDT Gender Identity Female 09/22/2018 11:50 AM EDT Sexual Orientation Straight 09/22/2018 11 :50 AM EDT Job Start Date Occupation Industry Not on file Not on file Not on file documented as of this encounter Miscellaneous Notes * Telephone Encounter - Olegario Ortega RPh - 01/25/2024 12:52 PM EDTSigned Prescriptions: Disp Refills Potassium Chloride Mary Jane ER 20 MEQ Oral Tab*90 Tab*2 Sig: Take 1 Tablet by mouth in the morning.Authorizing Provider: MICHELLE SIMON User: OLEGARIO ORTEGA Atenolol-Chlorthalidone 100-25 MG Oral Tab*90 Tab*2 Sig: TAKE 1 TABLET BY MOUTH ONCE DAILYAuthorizing Provider: MICHELLE SIMON User: OLEGARIO ORTEGA documented in this encounter Plan of Treatment Upcoming Encounters Date Type Department Care Team (Late st Contact Info) Description 03/02/2024 9:20 AM EST Office Visit General Internal Medicine [facility] [address] [place] [address] Michelle Simon MD [address] [facility] [place] [address] 03/02/2024 11:00 AM EST Office Visit Allergy/Immunology [facility] [address] [place] [address] Lara Fontanez PA-C [address] [place] [address] 05/15/2024 9:45 AM EST Imaging Radiology [facility] [address] [facility], [place] [address] [facility] [place] [id number] 05/24/2024 11:00 AM EST Office Visit Dermatology [facility] [address] [place] [address] Olga Tony PA-C [address] [place] [address] 06/01/2024 10:00 AM EST Office Visit Sleep Disorders [facility] [address] [place] [id number] Makayla Dale, [address] [place] [address] Scheduled Procedures Name Priority Associated Diagnoses Date/Ti me COLONOSCOPY FLEXIBLE PROXIMA L DIAGNOSTIC Recall History of colonic polyps Health Maintenance Due Date Last Done Comments Cologuard 12/11/1995 Sigmoidoscopy 12/11/1995 Fecal Occult Blood Test 07/31/2007 07/30/2006, 07/02 Mammogram 03/24/2024 03/24/2023, 02/25, 03/23/2022, Additional history exists Adult Wellness Visit 03/26/2024 03/26/2023, 12/04/19 21 Depression Screening 03/26/2024 03/26/2023 Albumin/Creatinine Ratio 08/12/2024 022, 07/19/2014, 03/11/2009, Additional history exists GFR 08/19/2024 08/20/2023, 03/0 04/2022, 02/16/2022, Additional history exists HbA1c 08/19/2024 08/20/2023, 03/0 04/2022, 08/12/2021, Additional history exists Colonoscopy 08/17/2028 08/18/2023, 07/26, 08/29/2018, Additional history exists Colorectal Cancer Screening 08/17/2028 Lipid Panel 08/19/2028 08/20/2023, 03/0 04/2022, 02/16/2022, Additional history exists DXA Scan 04/05/2030 04/05/2023, 03/26, 01/20/2016 DTap/Tdap Vaccines (3 - Td or Tdap) 05/29/2032 05/29/2022, 12/24/2011, 10/02/2006, Additional history exists Pneumococcal Vaccine: 65+ Years Completed 06/15/2017, 12/16/2015 Zoster Vaccines Completed 06/19/2019, 02/24, 12/31/2011 RETIRED - COLONOSCOPY-EVERY 5 YRS AGES 18-100 Discontinued 08/18/2023, 08/18/2023, 08/29/2018, Additional history exists COVID-19 Vaccine Completed 01/01/2024, , 01/28/2022, Additional history exists Influenza Vaccine (FLU shot) Completed 01/06/2024, 01/08/2023, 01/19/2022, Additional history exists HPV (Gardasil) Vaccine Aged Out No lo nger eligible based on patient's age to complete this topic Hepatitis B Vaccine Aged Out No longe r eligible based on patient's age to complete this topic MENINGOCOCCAL (MENACTRA/MENVEO) Aged Out No longer eligible based on patient's age to complete this topic documented as of this encounter Medical Devices Not on filedocumented as of this encounter Visit Diagnoses Diagnosis Electrolyte and fluid disorder Electrolyte and fluid disorders not elsewhere classified HTN, goal below 140/90 Unspecified essential hypertension Screening mammogram for breast cancer documented in this encounter Care Teams Hemstitching Machine Operator Relationship Specialty Start Date End Date Michelle Simon MD [address] [place] [address] PCP - General Internal Medicine 05/08/19 documented as of this encounter
--- OUTSIDE RECORDS SUMMARY | 2024-02-04 16:09 | External Medical Summary | Summary of Care ---
Author Name Unknown Organization [facility] Address [address] [place] [address] Phone [phone] Care Team Providers Care Pearl Hand Name Role Phone Michelle Simon MD Primary Care Provider + Encounter Details Date Type Department Care Team (Late st Contact Info) Description 01/11/2024 Orders Only Outcomes Research Department [address] [place], [place] [id number] Casi Monae CHRA MyCode Research Other*[id number] Allergies Active Allergy Reactions Criticality Noted Date Comments Penicillins Hives 01/21/1998 Sulfa Antibiotics Hives 01/27/2011 documented as of this encounter (statuses as of 01/11/2024) Medications Medication Sig Dispensed Refills Start Date End Date Status VITAMIN D 1000 UNITS PO CAPSIndications:Vitam in D deficiency 1 capsule daily 30 Cap 11 12/14/2011 Active NASAL SALINE 0.65 % NA SOLNIndications:Aller gic rhinitis,PND (post-nasal drip),Recurrent sinus infections FLUSH each nostril morning and night and every 2-4 hrs as needed for nasal dryness or congestion 1 Bottle 3 03/14/2012 Active ADVIL 200 MG PO CAPS as needed Acti ve Ketoconazole 2 % creamIndications:Kymberly a pedis of both feet Apply topically to affected area 2 times a day. Apply to feet 15 g 1 10/12/2019 Active Hydrocortisone 2.5 % External OintmentIndications:D ermatitis Apply to top of buttocks once daily [...] HFA 108 (90 Base) MCG/ACT Inhalation Aerosol SolutionIndications:I ntermittent asthma with reliever use up to twice per week, uncomplicated INHALE 2 PUFFS EVERY 4 HOURS NEEDED FOR COUGH, WHEEZE, SHORTNESS OF BREATH AND PRIOR TO EXERCISE 18 g 5 05/10/2023 Active Potassium Chloride Mary Jane ER 20 MEQ Oral Tablet Extended ReleaseIndications:El ectrolyte and fluid disorder Take 1 Tablet by mouth in the morning. 90 Tablet 07/27/2023 Active Atenolol-Chlorthalido ne 100-25 MG Oral TabletIndications:HTN , goal below 140/90 TAKE 1 TABLET BY MOUTH ONCE DAILY 90 Tablet 07/27/2023 Active Nystatin-Triamcinolon e 669146-6.1 UNIT/GM-% External Cream (Mycolog)Indications: Other atopic dermatitis Apply to rash twice a [...] Active Fluticasone Propionate HFA 110 MCG/ACT Inhalation AerosolIndications:In termittent asthma with reliever use up to twice per week with acute exacerbation Inhale 2 Puffs by mouth in the morning and 2 Puffs before bedtime. BRAND NECESSARY. 36 g 3 11/18/2023 Active Azelastine HCl 0.1 % Nasal Solution (Astelin) Administer 2 Sprays into nostril in the morning and 2 Sprays before bedtime. 90 mL 12 12/24/2023 Active documented as of this encounter (statuses as of 01/11/2024) Active Problems Problem Noted Date Diagnosed Date [...] as of this encounter (statuses as of 01/11/2024) Resolved Problems Problem Noted Date Diagnosed Date Resolved Date Other specified diabetes lino litus with hyperglycemia 01/18/2020 06/24/2022 Encounter for examination fo r normal comparison and control in clinical research program 06/14/2017 11/27/2019 Overview: DO NOT DELETE [facility] [place] DETECT Study: Project # [id number], Marker Assembler: Judd Danielle, PhD. SUMMARY: Goal: Establish test [...] contact study staff at ; after hours Marker Assembler via the [facility] [place] pasta press operator . Please contact study team before resolving/deleting from patients problem list. Study phone number: [phone]. Diagnosis changed due to Research Module. Go to Snapshot for study details. Encounter for examination fo r normal comparison and control in clinical research program 06/14/2017 12/25/2021 Overview: DO NOT DELETE - [facility] Study: Project # [id number], Marker Assembler: Aakash Suarez, MS, MPH. SUMMARY: Goal: Establish [...] contact study staff at ; after hours Marker Assembler via the [facility] pasta press operator . - Please contact study team before resolving/deleting from patients problem list. Study phone number: [phone]. Diagnosis changed due to Research Module. Go [...] as of this encounter (statuses as of 01/11/2024) Immunizations Name Administration Dates Next Due COVID-19 [...] 65+ Yrs, IM (FLUAD) 01/18/2020 Seasonal Influenza Virus Vac cine, Unspecified Formulation 01/19/2022 Seasonal Influenza, High Dos e, Trivalent, PF, IM (Fluzone HD) 01/06/2024 Seasonal Influenza, PF, 6 M & above, IM , (FluLaval or Fluzone) 02/22/2018,03/01/2017 Seasonal Influenza, Quadriva lent Hd (Fluzone Hd) 01/08/2023,02/05/2021 Seasonal Influenza, Quadriva lent, No Preserve, IM 03/31/2016,03/06/2015 Seasonal Influenza, Trivalen t, (IIV3), with Preserv, (Fluzone) 01/18/2014,01/14/2013,12/31/2011,02/14 Seasonal Influenza, Trivalen t, Adjuvanted, 65+ YRS, [...] No 11/16/2022 Does the household have a [facility] source [facility] income? (Household - for ages [...] on file documented as of this encounter Plan of Treatment Upcoming Encounters Date Type Department Care Team (Late st Contact Info) Description 03/02/2024 9:20 AM EST Office Visit General Internal Medicine [facility] [address] [place] [address] Michelle Simon MD [address] [place] [address] 03/02/2024 11:00 AM EST Office Visit Allergy/Immunology [facility] [address] [place] [address] Lara Fontanez PA-C [address] [facility] [place] [address] 05/15/2024 9:45 AM EST Imaging Radiology [facility] [facility] [address] [place] [address] 05/24/2024 11:00 AM EST Office [facility] [address] [place] [address] Olga Tony PA-C [address] [place] [address] 06/01/2024 10:00 AM EST Office Visit Sleep Disorders [facility]tr [facility] [address] [place] [id number] Makayla Dale DO [address] [place] [address] Scheduled Orders Name Type Priority Associated Diagnoses Orde r Schedule MYCODE SUBSEQUENT ADULT Lab Routine MyCode Research Other*[id number] Every 6 Months for 2 Occurrences starting 01/11/2024 until 01/30/2025 Scheduled Procedures Name Priority Associated Diagnoses Date/Ti [...] as of this encounter Visit Diagnoses Diagnosis MyCode Research Other*[id number] Screening mammogram for breast cancer documented in this encounter Care Teams Pearl Hand Relationship Specialty Start Date End Date Michelle Simon MD [address] [place], [place] [address] PCP - General Internal Medicine 05/08/19 documented as of this encounter
[2024-02-04 19:42] VITALS: RESP 16
[2024-02-04] MEDS: AZELASTINE HCL 0.1% NASAL 200 SPRAYS/27,400 MCG BTL SCH (20:51)
[2024-02-04] MEDS: CETIRIZINE HCL 10 MG TABLET PO SCH (20:53)
[2024-02-04] MEDS ORDERED: NON-FORMULARY MEDICATION (Vitamins A,C,E-Zinc-Copper [Preservision Areds] 2,148 mcg-113 mg PO SCH (21:00)
[2024-02-04] MEDS: SENNA 8.6 MG TAB PO SCH (21:03)
[2024-02-04] MEDS: DOCUSATE SODIUM 100 MG CAP PO SCH (21:03)
[2024-02-04] MEDS: COUGH DROP (SUGAR FREE) LOZ 24 LOZ/1 BOX BUCCAL PRN (23:47)
--- NOTE | 2024-02-05 07:16 | Orthopedic Progress Note ---
Date of Service February 05, 2024 Assessment & Plan (1) Status post replacement of right shoulder joint: Overall she is doing very well. She is not having much pain in the right shoulder. She will be seen by physical therapy today for ambulation and range of motion exercises. She can be discharged to home later today. She will follow-up orthopedics in 2 weeks. Mickie Tinsley was seen and examined at bedside this morning. Overall she is doing fairly well. She is not having much pain in the right shoulder. She has been up and ambulating to the bathroom. She has no complaints.. Review of Systems All systems reviewed & are unremarkable except as noted in HPI & below. Physical Exam On physical examination of the right shoulder, the dressing is clean and dry. She is wearing her sling as instructed. She has active motion of her hand.. Results & Data Results & Data Laboratory Results . Diagnostic Findings Postoperative x-rays of the right shoulder show the prosthesis to be in anatomic alignment without any evidence of fracture complication, or loosening.. PG Care Time/CCT Total # of Minutes Spent Total Time Spent with Patient: Total time spent is greater than 50% in coordination of care (as documented) at patient's floor/unit and/or counseling patient: Coding Level of Care Code 30470 Post Operative Follow-Up Diagnoses Status post replacement of right shoulder joint Z96.611
--- NOTE | 2024-02-05 07:16 | Discharge Summary ---
Date of Service February 05, 2024 Admission HPI (Per Admitting) Alvina is a pleasant 72-year-old female who has been dealing with chronic increasing right shoulder pain. 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 After failing conservative treatment, she has elected to proceed with a right total shoulder arthroplasty. . Admission Exam (Per Admitting) Physical examination of the right shoulder, she has decreased range of motion. She has pain over the glenohumeral joint line.. Principal Diagnosis Same as "Discharge Diagnosis" noted below under Discharge Instructions. Discharge Exam On physical examination of the right shoulder, the dressing is clean and dry. She is wearing her sling as instructed. She has active motion of her hand.. Discharge Data Procedures Performed Operation Date: 02/04/24 10:00 Actual Procedures p Right Anatomic Total Shoulder Arthroplasty(Right) - Maldonado Brar DO Ordered Studies 02/04/24 05:00 US - OR guided needle placemen Routine Hospital Course (1) Status post replacement of right shoulder joint: On February 04, 2024 Alvina arrived at [facility] and underwent a right shoulder replacement without complication. She had a general anesthetic and a right interscalene nerve block. Postoperatively she was placed in a sling and transferred to the general orthopedic floors. Her hospital course was uneventful. On postop day #1, her vital signs were stable and her pain was well-controlled. She was able to place weight well with physical therapy doing ambulation and range of motion exercises. She was then discharged to home. She will follow-up with orthopedics in 2 weeks. PG Care Time/CCT Total # of Minutes Spent Total Time Spent with Patient: Total time spent is greater than 50% in coordination of care (as documented) at patient's floor/unit and/or counseling patient: Discharge Plan Discharge Items Patient Disposition: Home - Self-Care Reason For Visit: POST OP TSA Discharge Diagnosis: Right shoulder replacement Activity: Per Instructions section Non-emergency contact: Surgeon Call non-emergency contact if: your wound has increased redness and your wound has increased drainage Follow-up/Referrals: Michelle Simon MD [Primary Care Provider] - Diet: Regular Addtl Attending Provider Instructions: Activity and Therapy Recommendations: * If you are using [facility] then therapy will be provided at your home until they feel you have accomplished all of your goals. * If you are using [facility] then Physical Therapy will be provided until they feel you are ready to start Outpatient Physical Therapy. * If you are not using home therapy then Outpatient Physical Therapy should start about 3-5 days from your day of surgery. Therapy will last about 8-12 weeks * Wear your sling for 3 weeks, unless otherwise instructed. You may remove your sling to shower and to dress, but otherwise, you should be in your sling at all times, including while sleeping * The shoulder replacement is very stable and you can use your hand while in the sling * You were shown a series of exercises in the hospital. Do these exercises daily including the exercises you were shown in physical therapy. Medications: * Narcotic You will likely be sent home from the hospital with a prescription for the narcotic pain medication that worked best throughout your stay. * Cefadroxil -take the antibiotic twice a day for 10 days to help prevent infection. * Other medications may be prescribed for specific circumstances. If you have any questions, please call the office at . * Resume previous home medications unless otherwise instructed Dressing Care: Leave the Silverlon dressing in place for 7 days. After 7 days you may remove the dressing. If the incision is not draining then you may leave the abran open to air. If there is a little bit of drainage or if the abran are getting stuck on your clothing then cover the incision with a dry dressing. The abran will be removed at your 2 week follow-up appointment. Showering: You may shower with the Silverlon dressing in place. Do not let the shower spray hit the dressing directly. Pat the Silverlon dressing dry. If the dressing becomes wet underneath, then simply remove the dressing. Keep the incision dry until you are 7 days out from the day of surgery. After 7 days you may remove the Silverlon dressing and shower with the abran exposed. Let soapy water run over the abran and pat them dry. Do not scrub or soak the incision. Diet: You may resume your previous diet. Things To Watch For: * Drainage from the incision site that occurs more than one week after your surgery. * Increased redness at the incision site. * Fever above 102 degrees Fahrenheit. * Unusual chest pain or shortness of breath. * Call [facility] at with any of the above problems Follow-Up Visit: Follow-up with Dr. Brar's PA (Maldonado Palomares) 2-3 weeks after your day of surgery. He will remove your abran and answer any questions. If you have any additional questions or concerns, Dr Brar is usually in the office at the same time and will be available An appointment was probably scheduled when you signed-up for surgery in the office. If you have any questions call More detailed instructions as well as Frequently Asked Questions were provided in a folder by our office when you signed-up for surgery. Please review these instructions when you get home. If you have any further questions or concerns, please feel free to call the office at [phone] Pending Studies at Discharge: No Stand-Alone Forms: My [facility] L[employer] Wolly Doodle, Smoking Cessation Medications and DC Order Prescriptions: New oxycodone 5 mg Tablet 5 mg PO Q4H PRN (Reason: pain) Qty: 30 0RF cefadroxil 500 mg capsule 500 mg PO BID 10 Days Qty: 20 0RF Continued atorvastatin 20 mg tablet 20 mg PO QAM omega 9-xzc-zha-fish oil [Fish Oil] 1,000 mg (120 mg-180 mg) capsule 1 cap PO QAM cholecalciferol (vitamin D3) 25 mcg (1,000 unit) capsule 25 mcg PO QAM potassium chloride [Klor-Con] 20 mEq packet 20 meq PO QAM atenolol-chlorthalidone 100-25 mg Tablet 1 tab PO QAM cetirizine [Zyrtec] 10 mg Tablet 10 mg PO QPM mometasone [Nasonex 24hr Allergy] 50 mcg/actuation [place],Non-Aerosol 1 spray INTRANASAL BID Rx Instructions: administer into each nostril vitamin B complex Tablet 1 tab PO QAM albuterol sulfate 90 mcg/actuation Hfa Aerosol Inhaler 1 inh INHALATION QID PRN (Reason: sob) Align 4 mg Capsule 4 mg PO QAM PreserVision AREDS 2,148 mcg-113 mg-45 mg-17.4mg Tablet 1 tab PO BID Rx Instructions: administer with AM and PM meals famotidine [Pepcid AC] 20 mg Tablet 20 mg PO HS azelastine 137 mcg (0.1 %) spray,non-aerosol 2 spray INTRANASAL BID fluticasone propion-salmeterol 250-50 mcg/dose blister with device 2 inh INHALATION BID Admission Data Admit Date/Time: 02/04/24 11:28 Attending Provider: Maldonado Brar Admit Provider: Maldonado Brar Primary Care Provider: Michelle Simon
[2024-02-05 07:51] VITALS: BP 96/61; PULSE 51; TEMP 97.9; O2SAT 96
[2024-02-05] MEDS: FLUTICASONE/VILANTEROL 200/25MCG 14 PUFFS/INHALER INH SCH (08:20)
[2024-02-05] MEDS: MULTIVITAMIN TAB PO SCH (08:21)
[2024-02-05] MEDS: CHLORTHALIDONE 25 MG TAB PO SCH (08:21)
[2024-02-05] MEDS: dexAMETHasone 4 MG TAB PO SCH (08:21)
[2024-02-05] MEDS: ATENOLOL 50 MG TABLET PO SCH (08:21)
[2024-02-05] MEDS: ATORVASTATIN 20 MG TAB PO SCH (08:22)
[2024-02-05] MEDS: POTASSIUM CHLORIDE PWD 20 MEQ PACK PO SCH (08:22)
[2024-02-05] MEDS: FLUTICASONE PROPIONATE NA SPR 16 GM BTL NAE SCH (08:23)
== END 2024-02-05 10:54 | disposition home or self-care (01) ==
LOC: 3E 07:29 → ASU 07:29